=== PATIENT | female | born 1985 | race Caucasian/White ===

== ENCOUNTER → 2016-07-22 | Outpatient (CLI) | payer OTHER | LOC: MRI 12:47 | DX: M54.5 Low back pain (principal); M51.27 Other intervertebral disc displacement, lumbosacral region; M99.73 Connective tissue and disc stenosis of intervertebral foramina of lumbar region | CPT/HCPCS: 72148 ==

== ENCOUNTER → 2020-07-28 | Outpatient (CLI) | payer OTHER ==
[~2020-07-28] MED LIST: CLEOCIN HCL150 MG PO; CYCLOBENZAPRINE10 MG PO; PHENERGAN 12.12.5 M1 PO; TYLENOL 500 MG500 MG PO; VISTARIL25 MG PO
== END ==
LOC: EXRD 09:45
DX: J45.909 Unspecified asthma, uncomplicated (principal); R63.4 Abnormal weight loss
CPT/HCPCS: 71046

== ENCOUNTER → 2020-09-21 | Outpatient (CLI) | payer OTHER | LOC: KOH-I 13:45 | DX: M54.5 Low back pain (principal); M54.6 Pain in thoracic spine; M51.24 Other intervertebral disc displacement, thoracic region; M51.36 Other intervertebral disc degeneration, lumbar region; M51.27 Other intervertebral disc displacement, lumbosacral region; M51.26 Other intervertebral disc displacement, lumbar region | CPT/HCPCS: 72146; 72148 ==

== ENCOUNTER → 2020-10-16 | Outpatient (CLI) | payer OTHER | LOC: MAMO 08-25 14:00 → US 09-18 10:30 → MAMO 13:00 | DX: N64.4 Mastodynia (principal); N63.0 Unspecified lump in unspecified breast | CPT/HCPCS: 76641-LT; 76641-RT; 77066; G0279 ==

== ENCOUNTER 2021-06-11 17:25 | Emergency (ER) | payer OTHER | END 2021-06-11 23:30 | disposition left against medical advice (07) | LOC: ER1 17:25 | DX: Z53.21 Procedure and treatment not carried out due to patient leaving prior to being seen by health care provider (principal) ==

== ENCOUNTER → 2021-09-30 | Outpatient (CLI) | payer OTHER | LOC: MAMO 08-25 14:00 → US 08-25 14:00 → MAMO 10:00 → US 13:30 | DX: R92.8 Other abnormal and inconclusive findings on diagnostic imaging of breast (principal) | CPT/HCPCS: 76641; 77066; G0279 ==